=== PATIENT | male | born 1930 | race Caucasian/White ===

== ENCOUNTER 2017-07-07 10:17 | Emergency (ER) | payer MEDICARE, BC ==
[~2017-07-07] VITALS: Ht 177.8 cm; Wt 84.9 kg
[~2017-07-07 10:17] MED LIST: ALLO300T2 PO; APIX2.5T PO; ATEN-102 PO; LIPI10TA PO; NORV5TAB PO; PLAV75TA PO; PROS5TAB2 PO; TAB-TAB PO; TAMS0.4C67 PO
[2017-07-07 10:20] VITALS: BP 130/60; PULSE 67; RESP 16; TEMP 98.4; O2SAT 97
[2017-07-07 10:54] VITALS: RESP 16; O2SAT 97
[2017-07-07] MEDS ORDERED: LIDOCAINE 1%/EPINEPHrine 1:100,000 SOLN 30 ML VIAL ONE (10:56)
[2017-07-07] MEDS ORDERED: LIDOCAINE 1%/EPINEPHrine 1:100,000 SOLN 20 ML VIAL INFIL ONE (11:00)
[2017-07-07 11:19] LABS: AUTOMATED NEUTROPHIL # 4.3 TH/MM3 (1.8-7.7); BASOPHIL % 0.7 % (0.0-2.0); EOSINOPHIL # 0.1 TH/MM3 (0-0.4); EOSINOPHIL % 0.9 % (0.0-4.0); HEMATOCRIT 41.9 % (39.0-51.0); HEMOGLOBIN 13.5 GM/DL (13.0-17.0); LYMPH % 21.2 % (9.0-44.0); LYMPHOCYTE # 1.3 TH/MM3 (1.0-4.8); MEAN CELL VOLUME 95.7 FL (80.0-100.0); MEAN CORPUSCULAR HEMOGLOBIN 30.9 PG (27.0-34.0); MEAN CORPUSCULAR HGB CONC 32.3 % (32.0-36.0); MEAN PLATELET VOLUME 8.3 FL (7.0-11.0); MONOCYTE # 0.5 TH/MM3 (0-0.9); NEUT % 69.2 % (16.0-70.0); PLATELET COUNT 136 TH/MM3 (150-450); RED BLOOD COUNT 4.38 MIL/MM3 (4.50-5.90); WHITE BLOOD COUNT 6.2 TH/MM3 (4.0-11.0)
[2017-07-07] MEDS ORDERED: PROS5TAB PO (11:21)
[2017-07-07] MEDS ORDERED: LIPI10TA PO (11:21)
[2017-07-07] MEDS ORDERED: COUM4TAB PO (11:21)
[2017-07-07] MEDS ORDERED: AMLO5 PO (11:21)
[2017-07-07] MEDS ORDERED: ALLO300T2 PO (11:21)
[2017-07-07] MEDS ORDERED: ATEN50TA PO (11:21)
[2017-07-07] MEDS ORDERED: TAMS5CAP PO (11:21)
[2017-07-07] MEDS ORDERED: MULTTAB67 PO (11:22)
[2017-07-07] MEDS ORDERED: HYDR25TA5 PO (11:22)
--- NOTE | 2017-07-07 11:28 | PD ---
HPI Chief Complaint: Edema Time Seen by Provider: 10:43 Travel History International Travel<30 days: No Contact w/Intl Traveler<30days: No Traveled to known affect area: No History of Present Illness HPI 87-year-old male complains of left elbow or left arm pain and swelling. Patient states that he was leaning on the left elbow about 3 weeks ago and started having increasing pain and swelling since then. Patient states that the swelling started of the left olecranon area has been persistent since then. Patient started having increasing pain and swelling left forearm since yesterday. Patient states that he is not having coughing congestion for the past week. Patient was seen at local urgent care yesterday and was given prescription for antibiotic that he does not know the name of. Patient also had Eilgio wrap on the left elbow since yesterday. Patient patient states that he had low-grade fever several days ago but not since then. Patient denies any headache. Patient denies any chest pain or shortness of breath. Patient denies abdominal pain. Patient denies any focal weakness or numbness of extremity. Patient has history of atrial fibrillation and on Coumadin. Patient also has history of hypertension and hyperlipidemia. PFSH Past Medical History Hx Anticoagulant Therapy: Yes (COUMADIN) AAA: Yes (repair) Arthritis: Yes Blood Disorders: No Heart Rhythm Problems: Yes (afib) Cancer: No Cardiac Catheterization: Yes (STENTS x4) Cardiovascular Problems: Yes (AFIB) High Cholesterol: Yes Chest Pain: Yes Coronary Artery Disease: Yes Diabetes: No Endocrine: No GERD: Yes Gout: Yes Genitourinary: No Hepatitis: No Hiatal Hernia: No Hypertension: Yes Immune Disorder: No Musculoskeletal: Yes (ARTHRITIS) Neurologic: No Psychiatric: No Reproductive: Yes (BPH) Respiratory: No Immunizations Current: Yes Thyroid Disease: No Tetanus Vaccination: < 5 Years Past Surgical History Abdominal Surgery: Yes (AAA REPAIR) AICD: No Body Medical Devices: CARDIAC STENTS Coronary Stent: Yes Eye Surgery: Yes (ARTI. CATARACT EXTRACT.) Joint Replacement: No Oral Surgery: Yes (T&A) Pacemaker: No Tonsillectomy: Yes Other Surgery: Yes Social History Alcohol Use: Yes (occasional beer) Tobacco Use: No (quit 30 years ago) Substance Use: No Allergies-Medications (Allergen,Severity, Reaction): Coded Allergies: No Known Allergies (Unverified Adverse Reaction, Unknown, 07/07/17) Reported Meds & Prescriptions Reported Meds & Active Scripts Active Reported Multiple Vitamin 1 Tab 1 Tab PO DAILY Hydrochlorothiazide 25 Mg Tab 25 Mg PO DAILY PRN Lipitor (Atorvastatin Calcium) 10 Mg Tab 10 Mg PO HS Allopurinol 300 Mg Tab 300 Mg PO DAILY Proscar (Finasteride) 5 Mg Tab 5 Mg PO DAILY Do not crush. Atenolol 50 Mg Tab 50 Mg PO DAILY Norvasc (Amlodipine Besylate) 5 Mg Tab 5 Mg PO DAILY Coumadin (Warfarin) 4 Mg Tab 4 Mg PO DAILY Flomax (Tamsulosin HCl) 0.4 Mg Cap 0.4 Mg PO HS Review of Systems General / Constitutional: No: Fever Eyes: No: Visual changes HENT: No: Headaches Cardiovascular: No: Chest Pain or Discomfort Respiratory: No: Shortness of Breath Gastrointestinal: No: Abdominal Pain Genitourinary: No: Dysuria Musculoskeletal: Positive: Edema, Pain Skin: No Rash Neurologic: No: Weakness Psychiatric: No: Depression Endocrine: No: Polydipsia Hematologic/Lymphatic: No: Easy Bruising Physical Exam Narrative GENERAL: Well-nourished, well-developed patient. SKIN: Focused skin assessment warm/dry. HEAD: Normocephalic. EYES: No scleral icterus. No injection or drainage. NECK: Supple, trachea midline. No JVD or lymphadenopathy. CARDIOVASCULAR: Regular rate and rhythm without murmurs, gallops, or rubs. RESPIRATORY: Breath sounds equal bilaterally. No accessory muscle use. GASTROINTESTINAL: Abdomen soft, non-tender, nondistended. MUSCULOSKELETAL: Patient has soft tissue swelling over the olecranon area of the left elbow. Patient has soft tissue swelling diffuse over the left forearm extending to the left wrist to dorsal aspect of the left hand. Mild redness noted on the left forearm. Full range of motion of the elbow, wrist and fingers. Mild increase in heat noted on the left forearm. BACK: Nontender without obvious deformity. No CVA tenderness. Neurologic exam normal. Data Data Last Documented VS Vital Signs Date Time Temp Pulse Resp B/P (MAP) Pulse Ox O2 Delivery O2 Flow Rate FiO2 07/07/17 10:54 16 97 Room Air 07/07/17 10:42 67 07/07/17 10:20 98.4 130/60 (83) Orders Orders Lidocai-Epi 1%-1:100,000 Inj (Xylocaine- (07/07/17 11:00) Complete Blood Count With Diff (07/07/17 10:51) Basic Metabolic Panel (Bmp) (07/07/17 10:51) Prothrombin Time / Inr (Pt) (07/07/17 10:51) Act Partial Throm Time (Ptt) (07/07/17 10:51) Blood Culture (07/07/17 10:51) Wound Culture And Gram Stain (07/07/17 10:51) Iv Access Insert/Monitor (07/07/17 10:51) Ecg Monitoring (07/07/17 10:51) Oximetry (07/07/17 10:51) Us Arm Venous Doppler Bilat (07/07/17 10:51) Lidocai-Epi 1%-1:100,000 Inj (Xylocaine- (07/07/17 10:56) Elbow, Complete (4 Vws) (07/07/17 11:25) Chest, Single Ap (07/07/17 11:25) Vancomycin Inj (Vancomycin Inj) (07/07/17 12:30) Labs Laboratory Tests Test 07/07/17 11:05 White Blood Count 6.2 TH/MM3 Red Blood Count 4.38 MIL/MM3 Hemoglobin 13.5 GM/DL Hematocrit 41.9 % Mean Corpuscular Volume 95.7 FL Mean Corpuscular Hemoglobin 30.9 PG Mean Corpuscular Hemoglobin Concent 32.3 % Red Cell Distribution Width 14.0 % Platelet Count 136 TH/MM3 Mean Platelet Volume 8.3 FL Neutrophils (%) (Auto) 69.2 % Lymphocytes (%) (Auto) 21.2 % Monocytes (%) (Auto) 8.0 % Eosinophils (%) (Auto) 0.9 % Basophils (%) (Auto) 0.7 % Neutrophils # (Auto) 4.3 TH/MM3 Lymphocytes # (Auto) 1.3 TH/MM3 Monocytes # (Auto) 0.5 TH/MM3 Eosinophils # (Auto) 0.1 TH/MM3 Basophils # (Auto) 0.0 TH/MM3 CBC Comment DIFF FINAL Differential Comment Prothrombin Time 22.1 SEC Prothromb Time International Ratio 2.2 RATIO Activated Partial Thromboplast Time 37.4 SEC Blood Urea Nitrogen 16 MG/DL Creatinine 0.70 MG/DL Random Glucose 122 MG/DL Calcium Level 10.0 MG/DL Sodium Level 140 MEQ/L Potassium Level 3.9 MEQ/L Chloride Level 104 MEQ/L Carbon Dioxide Level 30.2 MEQ/L Anion Gap 6 MEQ/L Estimat Glomerular Filtration Rate 106 ML/MIN [facility] Medical Decision Making Medical Screen Exam Complete: Yes Emergency Medical Condition: Yes Interpretation(s) Last Impressions Upper Extremity Ultrasound 07/07/17 1051 Signed Impressions: Service Date/Time: Friday, July 07, 2017 11:32 - CONCLUSION: 1. Negative for deep venous thrombosis. Trevor Mendosa MD 12:25 PM. CBC WBC 6.2. Hemoglobin 13.5 hematocrit 41.9. Platelet 136. Normal differential. BMP within normal limit. INR 2.2. Differential Diagnosis Differential diagnosis including cellulitis, DVT. Narrative Course 87-year-old male with pain and swelling left elbow and left forearm. Vancomycin 1 g IV given. Procedures Procedure Narrative Left elbow aspiration: 1% lidocaine with epinephrine local anesthesia. Aspiration at the left olecranon area reveals 3 cc of reddish clear fluid. The fluid was sent for [employer]LOOD [employer]. Dressing applied. Diagnosis Primary Impression: Cellulitis of left forearm Additional Impression: Olecranon bursitis Qualified Codes: M70.22 - Olecranon bursitis, left elbow Patient Instructions: General Instructions Additional Instructions: Take medications as directed. Check INR daily while on antibiotic. Follow-up with personal physician in 2 days for recheck. Return if worse Med/Other Pt SpecificInfo: Prescription(s) given Scripts Sulfamethoxazole-Trimethoprim (Bactrim DS) 800-160 Mg Tab 1 TAB PO BID for Infection, #20 TAB 0 Refills Prov: Tao Jacob MD 07/07/17 Clindamycin (Clindamycin) 150 Mg Cap 300 MG PO QID for Infection, #80 CAP 0 Refills Prov: Tao Jacob MD 07/07/17 Disposition: 01 DISCHARGE HOME Condition: Stable Tao Jacob MD Jul 07, 2017 11:28
[2017-07-07 11:34] LABS: BICARBONATE 30.2 MEQ/L (21.0-32.0)
[2017-07-07 11:36] LABS: INTERNATIONAL NORMALIZED RATIO 2.2 RATIO; PROTHROMBIN TIME - PATIENT 22.1 SEC (9.8-11.6)
[2017-07-07 11:37] LABS: CREATININE 0.7 MG/DL (0.60-1.30)
--- NOTE | 2017-07-07 11:57 | RADRPT ---
EXAM DATE/TIME: 07/07/2017 11:32 [facility] COMPARISON: No previous studies available for comparison. INDICATIONS : Bilateral arm swelling. MEDICAL HISTORY : Hypercholesterolemia. Arthritis. Benign prostatic hyperplasia, (BPH) Afib. Chest pain. HTN. GERD. Gou t. Anticoagulant therapy, Warfarin. SURGICAL HISTORY : Tonsillectomy.Abdominal aortic aneurysm repair. Coronary artery stent.Bilateral cataract extraction. Adenoidectomy. Cardiac cath. ENCOUNTER: Initial ACUITY: 3 weeks PAIN SCORE: 0/10 LOCATION: Bilateral arm. FINDINGS: RIGHT UPPER EXTREMITY: There is spontaneous flow documented in the brachial, basilic, cephalic, axillary, and subclavian vei ns. The vessels are compressible and augmentation response is documented. No filling defects are se en. The flow is phasic with respiration. Direction of flow in the jugular vein is caudal. LEFT UPPER EXTREMITY: There is spontaneous flow documented in the brachial, basilic, cephalic, axillary, and subclavian vei ns. The vessels are compressible and augmentation response is documented. No filling defects are se en. The flow is phasic with respiration. Direction of flow in the jugular vein is caudal. CONCLUSION: 1. Negative for deep venous thrombosis. Trevor Mendosa MD on July 07, 2017 at 11:55 Board Certified Radiologist. This report was verified electronically.
[2017-07-07] MEDS ORDERED: VANCOMYCIN INJ 1,000 MG in SODIUM CHLOR 0.9% 250 ML INJ 250 ML IV ONE (12:30)
--- NOTE | 2017-07-07 12:35 | RADRPT ---
EXAM DATE/TIME: 07/07/2017 12:06 [facility] COMPARISON: No previous studies available for comparison. INDICATIONS : Cough, fever. MEDICAL HISTORY : Hypercholesterolemia. Hypertension Gastroesophageal reflux disease. A-fib. CAD. Arthritis. Gout. SURGICAL HISTORY : Tonsillectomy. Abdominal aortic aneurysm repair. Cardiac stent. Cataract. ENCOUNTER: Initial ACUITY: 2 days PAIN SCORE: 0/10 LOCATION: chest FINDINGS: A single view of the chest demonstrates the lungs to be symmetrically aerated without evidence of mas s, infiltrate or effusion. The cardiomediastinal contours are prominent. Osseous structures are inta ct. CONCLUSION: 1. Mild cardiomegaly. Tortuous aorta. Lungs are clear. Christiano Nugent MD on July 07, 2017 at 12:32 Board Certified Radiologist. This report was verified electronically.
--- NOTE | 2017-07-07 12:38 | RADRPT ---
EXAM DATE/TIME: 07/07/2017 12:06 [facility] COMPARISON: No previous studies available for comparison. INDICATIONS : Left elbow pain & swelling after leaning on it approximately 3 weeks ago. MEDICAL HISTORY : Hypercholesterolemia. Gastroesophageal reflux disease. Hypertension. A-fib. CAD. Arthritis. Gout. SURGICAL HISTORY : Tonsillectomy. Abdominal aortic aneurysm repair. Cardiac stent. Cataract. ENCOUNTER: Initial ACUITY: 3 weeks PAIN SCORE: 6/10 LOCATION: Left posterior elbow FINDINGS: Multiple view examination of the left elbow demonstrates soft tissue swelling over the extensor surfa ce of the elbow. No acute fracture or dislocation. No bony destructive changes. CONCLUSION: 1. Soft tissue swelling over the extensor surface of the elbow. This may be related to an olecranon b ursitis. No acute bony abnormality. Christiano Nugent MD on July 07, 2017 at 12:35 Board Certified Radiologist. This report was verified electronically.
[2017-07-07] MEDS ORDERED: CLIN150C14 PO (12:40)
[2017-07-07] MEDS ORDERED: BACT800T5 PO (12:40)
== END 2017-07-07 14:56 | disposition home or self-care (01) ==
LOC: PHED 10:17
DX: L03.114 Cellulitis of left upper limb (principal); M70.22 Olecranon bursitis, left elbow; B95.8 Unspecified staphylococcus as the cause of diseases classified elsewhere; M19.90 Unspecified osteoarthritis, unspecified site; I48.91 Unspecified atrial fibrillation; E78.00 Pure hypercholesterolemia, unspecified; I25.10 Atherosclerotic heart disease of native coronary artery without angina pectoris; I10 Essential (primary) hypertension; Z79.01 Long term (current) use of anticoagulants; Z95.5 Presence of coronary angioplasty implant and graft
CPT/HCPCS: 20606; 71045; 73080; 80048; 85025; 85610; 85730; 86403; 87040; 87070; 87077; 87186; 87205; 93970; 96365; 99284; J3370; J7050

== ENCOUNTER 2017-07-16 08:07 | Emergency (ER) | payer MEDICARE, BC ==
[~2017-07-16] VITALS: Ht 177.8 cm; Wt 86.0 kg
[~2017-07-16 08:07] MED LIST changes: +AMLO5 PO; -APIX2.5T PO; -ATEN-102 PO; +ATEN50TA PO; +BACT800T5 PO; +CLIN150C14 PO; +COUM4TAB PO; +HYDR25TA5 PO; +MULTTAB67 PO; -NORV5TAB PO; -PLAV75TA PO; +PROS5TAB PO; -PROS5TAB2 PO; -TAB-TAB PO; -TAMS0.4C67 PO; +TAMS5CAP PO
[2017-07-16 08:12] VITALS: BP 123/64; PULSE 94; RESP 16; TEMP 99.6; O2SAT 96
[2017-07-16 08:48] LABS: AUTOMATED NEUTROPHIL # 7.2 TH/MM3 (1.8-7.7); BASOPHIL # 0.1 TH/MM3 (0-0.2); BASOPHIL % 0.7 % (0.0-2.0); EOSINOPHIL % 0.5 % (0.0-4.0); HEMATOCRIT 42.3 % (39.0-51.0); HEMOGLOBIN 14.4 GM/DL (13.0-17.0); LYMPH % 4.4 % (9.0-44.0); LYMPHOCYTE # 0.4 TH/MM3 (1.0-4.8); MEAN CELL VOLUME 94.6 FL (80.0-100.0); MEAN CORPUSCULAR HEMOGLOBIN 32.1 PG (27.0-34.0); MEAN PLATELET VOLUME 8.3 FL (7.0-11.0); MONO % 4.4 % (0.0-8.0); MONOCYTE # 0.4 TH/MM3 (0-0.9); PLATELET COUNT 97 TH/MM3 (150-450); RED BLOOD COUNT 4.47 MIL/MM3 (4.50-5.90); RED CELL DISTRIBUTION WIDTH 14.4 % (11.6-17.2); WHITE BLOOD COUNT 8.1 TH/MM3 (4.0-11.0)
[2017-07-16 08:50] VITALS: BP 112/63; PULSE 81; RESP 18; O2SAT 95
--- NOTE | 2017-07-16 08:52 | RADRPT ---
EXAM DATE/TIME: 07/16/2017 08:42 [facility] COMPARISON: CHEST SINGLE AP, July 07, 2017, 12:06. INDICATIONS : Cough, congestion x 2-3 weeks. Patient states was seen here last week & may be having reaction to med ications perscribed. MEDICAL HISTORY : Hypercholesterolemia. Arthritis. Benign prostatic hyperplasia, (BPH) Afib. Chest pain. HTN. GERD. Gou t. Anticoagulant therapy, Warfarin. SURGICAL HISTORY : Tonsillectomy.Abdominal aortic aneurysm repair. Coronary artery stent.Bilateral cataract extraction. Adenoidectomy. Cardiac cath. ENCOUNTER: [facility] ACUITY: 2 weeks PAIN SCORE: 0/10 LOCATION: chest FINDINGS: A nodular density projects over the right lateral superhilar region measuring just over a centimeter. There is right paraspinal soft tissue prominence overlying the right heart border. This could be tor tuosity of the aorta. There is no definite evidence of consolidative infiltrate or significant effusi on. Heart size is within normal limits. There are degenerative changes present in the spine. CONCLUSION: Abnormal chest appearance. Recommend CT chest for further evaluation Cheko Reyes MD on July 16, 2017 at 8:49 Board Certified Radiologist. This report was verified electronically.
[2017-07-16 08:55] LABS: CHLORIDE 103 MEQ/L (98-107); SODIUM (NA) 134 MEQ/L (136-145)
[2017-07-16 08:58] LABS: CALCIUM 9.4 MG/DL (8.5-10.1)
[2017-07-16 08:59] LABS: ALBUMIN 3.5 GM/DL (3.4-5.0); BICARBONATE 24.5 MEQ/L (21.0-32.0); BLOOD UREA NITROGEN 16 MG/DL (7-18); GLUCOSE,RANDOM 131 MG/DL (74-106); MAGNESIUM 1.8 MG/DL (1.5-2.5); PROTHROMBIN TIME - PATIENT 40.4 SEC (9.8-11.6)
[2017-07-16 09:02] LABS: ALT (GPT) 32 U/L (12-78); AST (GOT) 26 U/L (15-37); CREATININE 0.78 MG/DL (0.60-1.30); GLOMERULAR FILTRATION RATE 94 ML/MIN (>89)
[2017-07-16 09:04] LABS: TOTAL BILIRUBIN ADULT 0.8 MG/DL (0.2-1.0); TOTAL PROTEIN 7.4 GM/DL (6.4-8.2)
[2017-07-16 09:05] LABS: ALKALINE PHOSPHATASE 96 U/L (45-117)
--- NOTE | 2017-07-16 09:51 | PD ---
HPI Chief Complaint: Cold / Flu Symptoms Time Seen by Provider: 08:17 Travel History International Travel<30 days: No Contact w/Intl Traveler<30days: No Traveled to known affect area: No History of Present Illness HPI This is an 87-year-old male who presents for cough and congestion. He states that he has had about a week and a half of cough and congestion. No fevers. He was seen here recently for left forearm cellulitis and has been taking Bactrim and clindamycin. His INR was elevated at 3 earlier this week. He states that today, he developed a diffuse light pink rash. It is not pruritic. No associated headache, neck pain or stiffness. No difficulty breathing, speaking, swallowing. He is not sure if 1 of these medications is causing the rash. No pain. It is not located on mucosal surfaces. Symptoms are mild in severity. Onset gradual. He states that the cellulitis on his left arm has resolved. PFSH Past Medical History Hx Anticoagulant Therapy: Yes (COUMADIN) AAA: Yes (repair) Arthritis: Yes Blood Disorders: No Heart Rhythm Problems: Yes (afib) Cancer: No Cardiac Catheterization: Yes (STENTS x4) Cardiovascular Problems: Yes (AFIB) High Cholesterol: Yes Chest Pain: Yes Coronary Artery Disease: Yes Diabetes: No Diminished Hearing: No Endocrine: No GERD: Yes Gout: Yes Genitourinary: No Hepatitis: No Hiatal Hernia: No Hypertension: Yes Immune Disorder: No Musculoskeletal: Yes (ARTHRITIS) Neurologic: No Psychiatric: No Reproductive: Yes (BPH) Respiratory: No Immunizations Current: Yes Thyroid Disease: No Influenza Vaccination: Yes Past Surgical History Abdominal Surgery: Yes (AAA REPAIR) AICD: No Body Medical Devices: CARDIAC STENTS Coronary Stent: Yes Eye Surgery: Yes (ARTI. CATARACT EXTRACT.) Joint Replacement: No Oral Surgery: Yes (T&A) Pacemaker: No Tonsillectomy: Yes Other Surgery: Yes Social History Alcohol Use: Yes (occasional beer) Tobacco Use: No (quit 30 years ago) Substance Use: No Allergies-Medications (Allergen,Severity, Reaction): Coded Allergies: No Known Allergies (Unverified Adverse Reaction, Unknown, 07/16/17) Reported Meds & Prescriptions Reported Meds & Active Scripts Active Bactrim DS (Sulfamethoxazole-Trimethoprim) 800-160 Mg Tab 1 Tab PO BID Clindamycin (Clindamycin HCl) 150 Mg Cap 300 Mg PO QID Reported Multiple Vitamin 1 Tab 1 Tab PO DAILY Hydrochlorothiazide 25 Mg Tab 25 Mg PO DAILY PRN Lipitor (Atorvastatin Calcium) 10 Mg Tab 10 Mg PO HS Allopurinol 300 Mg Tab 300 Mg PO DAILY Proscar (Finasteride) 5 Mg Tab 5 Mg PO DAILY Do not crush. Atenolol 50 Mg Tab 50 Mg PO DAILY Norvasc (Amlodipine Besylate) 5 Mg Tab 5 Mg PO DAILY Coumadin (Warfarin) 4 Mg Tab 4 Mg PO DAILY Flomax (Tamsulosin HCl) 0.4 Mg Cap 0.4 Mg PO HS Review of Systems Except as stated in HPI: all other systems reviewed are Neg Physical Exam Narrative GENERAL: Alert, well nourished, well appearing patient resting on the bed in no acute distress. Vital Signs reviewed SKIN: Focused skin assessment warm/dry. There is a diffuse faintly erythematous macular rash mostly on the torso. It is blanching. Nonpruritic. No purpura. No intraoral or mucosal lesions. No vesicular lesions or blisters. HEAD: Atraumatic. Normocephalic. EYES: Pupils equal and round. No scleral icterus. No injection or drainage. ENT: No nasal bleeding or discharge. Mucous membranes pink and moist. Posterior oropharynx with no erythema, edema, exudate NECK: Trachea midline. No JVD. Spontaneous, painless full range of motion with no meningismus CARDIOVASCULAR: Regular rate and rhythm. No murmur appreciated. Extremities warm and well perfused with bounding peripheral pulses RESPIRATORY: No accessory muscle use. Clear to auscultation. Breath sounds equal bilaterally. Breathing easily and speaking in full sentences GASTROINTESTINAL: Abdomen soft, non-tender, nondistended. Normal bowel sounds. No rigid, rebound, guarding MUSCULOSKELETAL: No obvious deformities. No clubbing. No cyanosis. No edema. Compartments are soft NEUROLOGICAL: Awake and alert. No obvious cranial nerve deficits. Motor grossly within normal limits. Normal speech. Sensation intact. Normal gait Data Data Last Documented VS Vital Signs Date Time Temp Pulse Resp B/P (MAP) Pulse Ox O2 Delivery O2 Flow Rate FiO2 07/16/17 11:21 88 18 121/68 (85) 97 Room Air 07/16/17 08:12 99.6 Orders Orders Sepsis Workup Initiated (07/16/17 ) Complete Blood Count With Diff (07/16/17 08:27) Comprehensive Metabolic Panel (07/16/17 08:27) Prothrombin Time / Inr (Pt) (07/16/17 08:27) Act Partial Throm Time (Ptt) (07/16/17 08:27) Lactic Acid Sepsis Protocol (07/16/17 08:27) Magnesium (Mg) (07/16/17 08:27) Influenzae A/B Antigen (07/16/17 08:27) Blood Culture (07/16/17 08:27) Chest, Pa & Lat (07/16/17 08:27) Ecg Monitoring (07/16/17 08:27) Iv Access Insert/Monitor (07/16/17 08:27) Oximetry (07/16/17 08:27) Ct Thorax/ Chest W Iv Contrast (07/16/17 ) Iohexol 350 Inj (Omnipaque 350 Inj) (07/16/17 11:32) Labs Laboratory Tests Test 07/16/17 08:30 07/16/17 08:40 White Blood Count 8.1 TH/MM3 Red Blood Count 4.47 MIL/MM3 Hemoglobin 14.4 GM/DL Hematocrit 42.3 % Mean Corpuscular Volume 94.6 FL Mean Corpuscular Hemoglobin 32.1 PG Mean Corpuscular Hemoglobin Concent 34.0 % Red Cell Distribution Width 14.4 % Platelet Count 97 TH/MM3 Mean Platelet Volume 8.3 FL Neutrophils (%) (Auto) 90.0 % Lymphocytes (%) (Auto) 4.4 % Monocytes (%) (Auto) 4.4 % Eosinophils (%) (Auto) 0.5 % Basophils (%) (Auto) 0.7 % Neutrophils # (Auto) 7.2 TH/MM3 Lymphocytes # (Auto) 0.4 TH/MM3 Monocytes # (Auto) 0.4 TH/MM3 Eosinophils # (Auto) 0.0 TH/MM3 Basophils # (Auto) 0.1 TH/MM3 CBC Comment AUTO DIFF Differential Comment AUTO DIFF CONFIRMED Platelet Estimate LOW Platelet Morphology Comment NORMAL Prothrombin Time 40.4 SEC Prothromb Time International Ratio 4.0 RATIO Activated Partial Thromboplast Time 43.3 SEC Blood Urea Nitrogen 16 MG/DL Creatinine 0.78 MG/DL Random Glucose 131 MG/DL Total Protein 7.4 GM/DL Albumin 3.5 GM/DL Calcium Level 9.4 MG/DL Magnesium Level 1.8 MG/DL Alkaline Phosphatase 96 U/L Aspartate Amino Transf (AST/SGOT) 26 U/L Alanine Aminotransferase (ALT/SGPT) 32 U/L Total Bilirubin 0.8 MG/DL Sodium Level 134 MEQ/L Potassium Level 4.2 MEQ/L Chloride Level 103 MEQ/L Carbon Dioxide Level 24.5 MEQ/L Anion Gap 7 MEQ/L Estimat Glomerular Filtration Rate 94 ML/MIN Lactic Acid Level 1.6 mmol/L MDM Medical Decision Making Medical Screen Exam Complete: Yes Emergency Medical Condition: Yes Medical Record Reviewed: Yes Interpretation(s) CT chest: 1. Emphysema. 2. 1.2 cm groundglass nodular density right upper lobe. Followup CT chest is recommended in 3 months. 3. Nonspecific adenopathy in the mediastinum and bilateral hilar regions. Laboratory Tests Test 07/16/17 08:30 07/16/17 08:40 White Blood Count 8.1 TH/MM3 Red Blood Count 4.47 MIL/MM3 Hemoglobin 14.4 GM/DL Hematocrit 42.3 % Mean Corpuscular Volume 94.6 FL Mean Corpuscular Hemoglobin 32.1 PG Mean Corpuscular Hemoglobin Concent 34.0 % Red Cell Distribution Width 14.4 % Platelet Count 97 TH/MM3 Mean Platelet Volume 8.3 FL Neutrophils (%) (Auto) 90.0 % Lymphocytes (%) (Auto) 4.4 % Monocytes (%) (Auto) 4.4 % Eosinophils (%) (Auto) 0.5 % Basophils (%) (Auto) 0.7 % Neutrophils # (Auto) 7.2 TH/MM3 Lymphocytes # (Auto) 0.4 TH/MM3 Monocytes # (Auto) 0.4 TH/MM3 Eosinophils # (Auto) 0.0 TH/MM3 Basophils # (Auto) 0.1 TH/MM3 CBC Comment AUTO DIFF Differential Comment AUTO DIFF CONFIRMED Platelet Estimate LOW Platelet Morphology Comment NORMAL Prothrombin Time 40.4 SEC Prothromb Time International Ratio 4.0 RATIO Activated Partial Thromboplast Time 43.3 SEC Blood Urea Nitrogen 16 MG/DL Creatinine 0.78 MG/DL Random Glucose 131 MG/DL Total Protein 7.4 GM/DL Albumin 3.5 GM/DL Calcium Level 9.4 MG/DL Magnesium Level 1.8 MG/DL Alkaline Phosphatase 96 U/L Aspartate Amino Transf (AST/SGOT) 26 U/L Alanine Aminotransferase (ALT/SGPT) 32 U/L Total Bilirubin 0.8 MG/DL Sodium Level 134 MEQ/L Potassium Level 4.2 MEQ/L Chloride Level 103 MEQ/L Carbon Dioxide Level 24.5 MEQ/L Anion Gap 7 MEQ/L Estimat Glomerular Filtration Rate 94 ML/MIN Lactic Acid Level 1.6 mmol/L Last 24 hours Impressions Chest X-Ray 07/16/17 0806 Signed Impressions: Service Date/Time: Sunday, July 16, 2017 08:42 - CONCLUSION: Abnormal chest appearance. Recommend CT chest for further evaluation Cheko Reyes MD Differential Diagnosis Bronchitis, pneumonia, medication reaction, viral exanthem, electrolyte abnormality, coagulopathy, drug rash Narrative Course IV access was established. Labs, imaging were performed. The patient has been resting comfortably in the emergency department. He is breathing easily with normal oxygen saturations on room air. His INR is elevated at 4. His platelets are low at 97,000. He has had platelets at this level in the past. He has no evidence of active bleeding at this time. I spoke with him regarding the results of his workup including the abnormalities on the labs and the abnormality seen on CT. I am concerned that the Bactrim is increasing his INR. It could also be causing a rash. I have counseled the patient to stop the Bactrim. I do not feel he needs other antibiotics at this time. Blood cultures are pending. Regarding his abnormal lab findings, we will plan to hold the warfarin for 2 days. He will need an INR and CBC rechecked in 2-3 days. He will call his physician today to arrange close follow-up. He understands very strict return indications including worsening of rash, rash involving mucosal areas, difficulty breathing, fever, worsening symptoms. He is comfortable with this plan and eager to be discharged. Diagnosis Primary Impression: Acute bronchitis Qualified Codes: J20.9 - Acute bronchitis, unspecified Additional Impressions: Thrombocytopenia Supratherapeutic INR Rash Referrals: Primary Care Physician 2 days Patient Instructions: Acute Bronchitis (ED), General Instructions, Thrombocytopenia (ED) Additional Instructions: DO NOT TAKE YOUR COUMADIN/WARFARIN FOR THE NEXT 2 DAYS. YOUR INR AND A COMPLETE BLOOD COUNT ("CBC") NEEDS TO BE RECHECKED ON WEDNESDAY. STOP TAKING BACTRIM. FOLLOW UP WITH PRIMARY PHYSICIAN ON WEDNESDAY. RETURN WITH WORSENING SYMPTOMS: FEVER, DIFFICULTY BREATHING, BLEEDING, WORSENING RASH, OTHER CONCERNS. Med/Other Pt SpecificInfo: Med Stopped Disposition: 01 DISCHARGE HOME Condition: Stable Marleni Steven MD Jul 16, 2017 09:51
[2017-07-16 10:02] VITALS: BP 112/69; PULSE 88; RESP 18; O2SAT 96
[2017-07-16 11:21] VITALS: BP 121/68; PULSE 88; RESP 18; O2SAT 97
[2017-07-16] MEDS ORDERED: IOHEXOL 350 MG/ML 10 ML VIAL (for RAD DIAG) IVCONTRAST ONE (11:32)
--- NOTE | 2017-07-16 11:42 | RADRPT ---
EXAM DATE/TIME: 07/16/2017 11:24 [place] COMPARISON: CHEST PA & LAT, July 16, 2017, 8:42. INDICATIONS : Cough and congestion x 2-3 weeks. Abnormal chest x-ray. IV CONTRAST: 60 cc Omnipaque 350 (iohexol) IV RADIATION DOSE: 12.18 CTDIvol (mGy) MEDICAL HISTORY : Cardiovascular disease. Aneurysm, abdominal. Hypertension. SURGICAL HISTORY : Abdominal aortic aneurysm repair. Coronary artery stent. ENCOUNTER: Initial ACUITY: 2 weeks PAIN SCALE: 5/10 LOCATION: chest TECHNIQUE: Volumetric scanning of the chest was performed. Using automated exposure control and adjustment of the mA and/or kV according to patient size, radiation dose was kept as low as reasonab ly achievable to obtain optimal diagnostic quality images. DICOM format image data is available abilio ctronically for review and comparison. Follow-up recommendations for detected pulmonary nodules are based at a minimum on nodule size and pa tient risk factors according to Fleischner Society Guidelines. FINDINGS: There are emphysematous changes noted bilaterally. There is a subtle groundglass nodule in the right upper lobe measuring 1.2 cm on image 24. No pleural or pericardial effusions are seen. Atheroscleroti c calcifications of the aorta and coronary arteries identified. No pleural or pericardial effusions. Incompletely imaged on this study is a large cystic mass in the upper pole of the left kidney measure s 9.6 cm. There is gynecomastia noted bilaterally. Subcarinal adenopathy up to 1.3 cm, bilateral demi r adenopathy up to 1.3 cm on the left, and 2.2 cm on the right. The osseous structures demonstrate de generative changes of the spine. CONCLUSION: 1. Emphysema. 2. 1.2 cm groundglass nodular density right upper lobe. Followup CT chest is recommended in 3 months. 3. Nonspecific adenopathy in the mediastinum and bilateral hilar regions. Mello Camacho MD on July 16, 2017 at 11:36 Board Certified Radiologist. This report was verified electronically.
[2017-07-16 12:10] VITALS: TEMP 99.9
[2017-07-16 12:48] VITALS: BP 123/68
== END 2017-07-16 13:05 | disposition home or self-care (01) ==
LOC: PHED 08:07
DX: J20.9 Acute bronchitis, unspecified (principal); D69.6 Thrombocytopenia, unspecified; R21 Rash and other nonspecific skin eruption; E78.00 Pure hypercholesterolemia, unspecified; I10 Essential (primary) hypertension; I48.91 Unspecified atrial fibrillation; Z79.01 Long term (current) use of anticoagulants; Z87.891 Personal history of nicotine dependence
CPT/HCPCS: 71046; 71260; 80053; 83605; 83735; 85025; 85610; 85730; 87040; 87804; 99285; Q9967